=== PATIENT | female | born 1990 | race American Indian/Alaskan Native ===

== ENCOUNTER 2018-01-12 21:03 | Emergency (ER) | payer SELFPAY ==
[2018-01-12 22:21] LABS: Hematocrit 37.8 % (30.3-42.9); Hemoglobin 12.7 gm/dl (10.1-14.3); Mean Corpuscular HGB Conc 34 % (30-34); Mean Corpuscular Hemoglobin 29 pg (28-32); Mean Corpuscular Volume 86 fl (79-97); Platelet Count 259 K/mm3 (140-440); Red Blood Count 4.41 M/mm3 (3.65-5.03)
[2018-01-12 22:28] LABS: Bacteria,Urine 1+ /HPF (Negative); Bilirubin,Urine NEG (Negative); Blood,Urine NEG (Negative); Color,Urine Yellow (Yellow); Mucus,Urine FEW /HPF; Protein,Urine <15 mg/dL mg/dL (Negative)
[2018-01-12 22:35] LABS: Alanine Aminotransferase 26 units/L (7-56); Albumin 3.8 g/dL (3.9-5); BUN/Creatinine Ratio 27; Blood Urea Nitrogen 8 mg/dL (7-17); Calcium 8.9 mg/dL (8.4-10.2); Hemolysis Index 13
[2018-01-12 22:58] LABS: Basophils % (Manual) 0 % (0.0-1.8); Total Cells Counted 100
[2018-01-12 22:59] LABS: Anisocytosis 2+; Poikilocytosis 1+; Tear Drop Cells Rare
--- NOTE | 2018-01-13 00:22 | Emergency Department Report ---
HPI - General Chief Complaint: Abdominal Pain Time Seen by Provider: 01/13/18 00:07 - HPI HPI: 27-year-old female presents to the emergency department home with complaint of a 3 day history of some lower abdominal and/or pelvic discomfort. She also complains of some increased urination and urinary urgency. She says that her mother is in the healthcare field and diagnosed her with a UTI based on her symptoms and so she started taking a probiotic without much relief. She denies any fever, vaginal discharge, nausea, vomiting, back pain. However she says that she has abnormal menstrual cycle that went on for 17 days with only a short break before it started again recently. She also complains of some random lymph nodes. There are no aggravating or alleviating factors. No recent travel or sick contacts at home. She does not have a primary care physician. ED Past Medical Hx - Past Medical History Previous Medical History?: Yes - Surgical History Past Surgical History?: No - Social History Smoking Status: Light Tobacco Smoker Substance Use Type: Alcohol - Medications Home Medications: Home Medications Medication Instructions Recorded Confirmed Last Taken Type Nitrofurantoin Monohyd/M-Cryst 100 mg PO BID #14 capsule 01/13/18 Unknown Rx [Macrobid 100 mg Capsule] ED Review of Systems ROS: Stated complaint: ABD PAIN Other details as noted in HPI Comment: All other systems reviewed and negative Constitutional: denies: chills, fever Eyes: denies: eye pain, eye discharge, vision change ENT: denies: ear pain, throat pain Respiratory: denies: cough, shortness of breath, wheezing Cardiovascular: denies: chest pain, palpitations Gastrointestinal: abdominal pain. denies: vomiting Genitourinary: urgency, dysuria, frequency Musculoskeletal: denies: back pain, arthralgia Skin: denies: rash, lesions Neurological: denies: headache, numbness Physical Exam - Physical Exam Vital Signs: Vital Signs 01/12/18 21:28 Temperature 97.7 F Pulse Rate 66 Respiratory 18 Rate Blood Pressure 117/72 O2 Sat by Pulse 100 Oximetry Physical Exam: GENERAL: The patient is well-developed well-nourished. HENT: Normocephalic. Atraumatic. Patient has moist mucous membranes. EYES: Extraocular motions are intact. Pupils equal reactive to light bilaterally. NECK: Supple. Trachea is midline. CHEST/LUNGS: Clear to auscultation. There is no respiratory distress noted. HEART/CARDIOVASCULAR: Regular. There is no tachycardia. There is no murmur. ABDOMEN: Abdomen is soft, nontender. Patient has normal bowel sounds. There is no abdominal distention. SKIN: Skin is warm and dry. NEURO: The patient is awake, alert, and oriented. The patient is cooperative. The patient has no focal neurologic deficits. The patient has normal speech and gait. MUSCULOSKELETAL: There is no tenderness or deformity. There is no limitation range of motion. There is no evidence of acute injury. ED Course Vital Signs 01/12/18 21:28 Temperature 97.7 F Pulse Rate 66 Respiratory 18 Rate Blood Pressure 117/72 O2 Sat by Pulse 100 Oximetry ED Medical Decision Making - Lab Data Result diagrams: 01/12/18 21:57 01/12/18 21:57 - Radiology Data Radiology results: report reviewed, image reviewed interpreted by me: Abdominal x-ray shows nonspecific nonobstructive bowel gas PROCEDURE: US TRANSABDOMINAL TECHNIQUE: Real-time transabdominal sonography in multiple planes of the pelvis was performed with image documentation. Grayscale, color flow Doppler imaging and velocity spectral waveform analysis of the ovaries was employed (duplex imaging). HISTORY: pelvic pain COMPARISON: No prior studies are available for comparison. FINDINGS: UTERUS Size: 6.3 x 4.4 x 5.6 cm. Endometrial thickness: 11.1 mm. There is a nonspecific 5 millimeter calcification in the endometrium at the lower uterine segment. Orientation: anteverted. Cervix: Normal. Fibroids/masses: None. RIGHT Ovary: 2.3 x 2.4 x 2.0 cm. Appearance: There is a complex cyst measuring 17 millimeters. This could be hemorrhagic.. Doppler images: Normal spectral waveforms and color flow. The systolic and diastolic velocities are within normal limits. LEFT Ovary: 2.6 x 1.7 x 1.9 cm. Appearance: There is a complex cyst measuring 13 millimeters which could be hemorrhagic.. Doppler images: Normal spectral waveforms and color flow. The systolic and diastolic velocities are within normal limits. Pelvic fluid: None. IMPRESSION: There is no acute abnormality of the uterus or ovaries. There is no ovarian torsion. There is no free fluid. Transcribed By: CO Dictated By: CUONG GALARZA MD Electronically Authenticated By: CUONG GALARZA MD Signed Date/Time: 01/13/18 0228 - Medical Decision Making 27-year-old female presents with some pelvic pains and some signs/symptoms of urinary tract infection. Labs are mostly unremarkable but the patient does have a mild UTI. She is not . Abdominal x-ray does not show any acute process. Transvaginal/pelvic ultrasound does not show any signs of torsion but there appears to be a complex cyst on each ovary that could be hemorrhagic. No fluid seen in the pelvis. Vital signs stable throughout her ED course. She was given a dose of antibiotics for her urinary tract infection and will be discharged home on a prescription for it. She has been encouraged to follow up with both a primary care physician as well as an [facility]. The patient had requested to have her thyroid checked. There could be a very small amount of fullness to the anterior neck but no obvious goiter and no mass felt at this time. However the TSH was 0 and the free T4 was elevated. The patient is aware that we did not do any imaging of her thyroid and that she may need this in the near future and that she has been given referrals for primary care. She will return to the ER with any worsening of her symptoms or any acute distress. - Differential Diagnosis hyperthyroidism, , UTI, ovarian torsion, ovarian cyst Critical Care Time: No Critical care attestation.: If time is entered above; I have spent that time in minutes in the direct care of this critically ill patient, excluding procedure time. ED Disposition Clinical Impression: Hyperthyroidism, Pelvic pain UTI (urinary tract infection) Qualifiers: Urinary tract infection type: acute cystitis Hematuria presence: without hematuria Qualified Code(s): N30.00 - Acute cystitis without hematuria Ovarian cyst Qualifiers: Laterality: bilateral Qualified Code(s): N83.201 - Unspecified ovarian cyst, right side Disposition: DC-01 TO HOME OR SELFCARE Is pt being admited?: No Condition: Stable Instructions: Urinary Tract Infection in Women (ED), Hyperthyroidism (ED) Additional Instructions: Please follow-up with a primary care physician in the next few days. Return to the emergency Department with any worsening of your symptoms or any acute distress. Prescriptions: Nitrofurantoin Monohyd/M-Cryst [Macrobid 100 mg Capsule] 100 mg PO BID #14 capsule Referrals: [facility] [Outside] - 3-5 Days [facility] [Outside] - 3-5 Days [facility] [Outside] - 3-5 Days [facility] [Outside] - 3-5 Days JOSHUA ADAM MD [Staff Physician] - 3-5 Days [facility] [Provider Group] - 3-5 Days [facility] [Provider Group] - 3-5 Days Forms: Work/School Release Form(ED) Time of Disposition: 02:33
--- NOTE | 2018-01-13 00:39 | XRay Report ---
FINAL REPORT PROCEDURE: XR ABDOMEN 2V TECHNIQUE: Abdominal series, including supine and upright AP views. HISTORY: Abd pain COMPARISON: No prior studies are available for comparison. FINDINGS: Bowel gas pattern:Nonobstructive . Masses or calcifications:None . Bony structures:No significant abnormality . Pneumoperitoneum:None . Other:No significant findings . IMPRESSION: No acute abnormality.
[2018-01-13] MEDS ORDERED: MACROBID PO ONE (00:51)
[2018-01-13 01:54] VITALS: BP 114/63
--- NOTE | 2018-01-13 02:32 | Ultrasound Report ---
FINAL REPORT PROCEDURE: US TRANSABDOMINAL TECHNIQUE: Real-time transabdominal sonography in multiple planes of the pelvis was performed with image documentation. Grayscale, color flow Doppler imaging and velocity spectral waveform analysis of the ovaries was employed (duplex imaging). HISTORY: pelvic pain COMPARISON: No prior studies are available for comparison. FINDINGS: UTERUS Size: 6.3 x 4.4 x 5.6 cm. Endometrial thickness: 11.1 mm. There is a nonspecific 5 millimeter calcification in the endometrium at the lower uterine segment. Orientation: anteverted. Cervix: Normal. Fibroids/masses: None. RIGHT Ovary: 2.3 x 2.4 x 2.0 cm. Appearance: There is a complex cyst measuring 17 millimeters. This could be hemorrhagic.. Doppler images: Normal spectral waveforms and color flow. The systolic and diastolic velocities are within normal limits. LEFT Ovary: 2.6 x 1.7 x 1.9 cm. Appearance: There is a complex cyst measuring 13 millimeters which could be hemorrhagic.. Doppler images: Normal spectral waveforms and color flow. The systolic and diastolic velocities are within normal limits. Pelvic fluid: None. IMPRESSION: There is no acute abnormality of the uterus or ovaries. There is no ovarian torsion. There is no free fluid.
--- NOTE | 2018-01-13 02:32 | Ultrasound Report ---
FINAL REPORT PROCEDURE: US TRANSVAGINAL TECHNIQUE: Real-time transvaginal sonography in multiple planes of the pelvis was performed with image documentation. Grayscale, color flow Doppler imaging and velocity spectral waveform analysis of the ovaries was employed (duplex imaging). CPT 59357 and 39398 HISTORY: pelvic pain COMPARISON: No prior studies are available for comparison. FINDINGS: UTERUS Size: 6.3 x 4.4 x 5.6 cm. Endometrial thickness: 11.1 mm. There is a nonspecific 5 millimeter calcification in the endometrium at the lower uterine segment. Orientation: anteverted. Cervix: Normal. Fibroids/masses: None. RIGHT Ovary: 2.3 x 2.4 x 2.0 cm. Appearance: There is a complex cyst measuring 17 millimeters. This could be hemorrhagic.. Doppler images: Normal spectral waveforms and color flow. The systolic and diastolic velocities are within normal limits. LEFT Ovary: 2.6 x 1.7 x 1.9 cm. Appearance: There is a complex cyst measuring 13 millimeters which could be hemorrhagic.. Doppler images: Normal spectral waveforms and color flow. The systolic and diastolic velocities are within normal limits. Pelvic fluid: None. IMPRESSION: There is no acute abnormality of the uterus or ovaries. There is no ovarian torsion. There is no free fluid.
== END 2018-01-13 02:45 | disposition home or self-care (01) ==
LOC: ED 21:03
DX: N30.00 Acute cystitis without hematuria (principal); N83.201 Unspecified ovarian cyst, right side; E05.90 Thyrotoxicosis, unspecified without thyrotoxic crisis or storm; F17.200 Nicotine dependence, unspecified, uncomplicated
CPT/HCPCS: 36415; 74019; 76830; 80053; 81001; 84439; 84443; 84703; 85007; 85025; 93975

== ENCOUNTER 2018-08-30 12:06 | Emergency (ER) | payer MEDICAID ==
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
[2018-08-30 15:23] VITALS: BP 116/58
== END 2018-08-30 15:33 | disposition home or self-care (01) ==
LOC: ED 12:06
DX: S00.12XA Contusion of left eyelid and periocular area, initial encounter (principal); F17.200 Nicotine dependence, unspecified, uncomplicated; Y04.8XXA Assault by other bodily force, initial encounter; Y93.89 Activity, other specified; Y92.89 Other specified places as the place of occurrence of the external cause; Y99.8 Other external cause status
CPT/HCPCS: 99282

== ENCOUNTER 2018-11-28 15:56 | Emergency (ER) | payer MEDICAID ==
[2018-11-28 16:07] VITALS: BP 141/73
[2018-11-28] MEDS ORDERED: BOOSTRIX IM ONE (17:05)
[2018-11-28] MEDS ORDERED: XYLOCAINE 1% MPF 5 mL INFILTRATI ONE (17:05)
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
== END 2018-11-28 18:33 | disposition home or self-care (01) ==
LOC: ED 15:56
DX: S61.411A Laceration without foreign body of right hand, initial encounter (principal); F17.200 Nicotine dependence, unspecified, uncomplicated; W22.8XXA Striking against or struck by other objects, initial encounter; Y93.89 Activity, other specified; Y92.89 Other specified places as the place of occurrence of the external cause; Y99.8 Other external cause status
CPT/HCPCS: 90471; 90715